=== PATIENT | female | born 1990 | race Caucasian/White ===

== ENCOUNTER 2022-06-14 06:10 | Inpatient (IN) | payer OTHER ==
[2022-06-14] MEDS ORDERED: ELECTROLYTE-148 SOLN 500 ML IV SCH (06:30)
[2022-06-14] MEDS ORDERED: CITRIC ACID/SODIUM CITRATE 30 ML UNIT-DOSE CUP PO ONE (07:30)
[2022-06-14] MEDS ORDERED: ELECTROLYTE-148 SOLN 1,000 ML IV SCH (07:30)
[2022-06-14 07:40] VITALS: BMI 31.5
[2022-06-14] MEDS ORDERED: ONDANSETRON 4 MG/2 ML VIAL IVPUSH PRN (07:55)
[2022-06-14] MEDS ORDERED: morphine SULFATE (PF) 1 MG/2 ML SYRINGE ONE (08:03)
[2022-06-14] MEDS ORDERED: PHENYLEPHRINE HCL 10 MG/1 ML SINGLE DOSE VIAL ONE (08:24)
[2022-06-14] MEDS ORDERED: ePHEDrine SULFATE 50 MG/1 ML AMPULE ONE (08:24)
[2022-06-14] MEDS ORDERED: SODIUM CHLORIDE 0.9% P/F 10 ML VIAL IJ ONE (08:25)
[2022-06-14] MEDS ORDERED: ceFAZolin SODIUM 1 GM VIAL ONE (08:29)
[2022-06-14] MEDS ORDERED: OXYTOCIN 10 UNITS/ML VIAL ONE ×2 (08:55→09:35)
[2022-06-14] MEDS ORDERED: BENZOCAINE 28 GM HEMORRHOIDAL OINTMENT TP PRN (10:15)
[2022-06-14] MEDS ORDERED: WITCH HAZEL 50% (TUCKS) 40 PAD/JAR PAD TP PRN (10:15)
[2022-06-14] MEDS ORDERED: IBUPROFEN 800 MG/8 ML IJ IVPB PRN (10:15)
[2022-06-14] MEDS ORDERED: BENZOCAINE 20% 57 GM BOTTLE TP PRN (10:15)
[2022-06-14] MEDS ORDERED: METHYLERGONOVINE MALEATE 0.2 MG/1 ML AMP IM PRN (10:15)
[2022-06-14 11:11] LABS: CORD BASE EXCESS -4.6 mmol/L (0-2); CORD HCO3 22.8 mmHg (20-29); CORD PCO2 50.2 mmHg (30-78); CORD pH 7.275 (7.14-7.44)
[2022-06-14 11:17] LABS: CORD BASE EXCESS -0.8 mmol/L (0-2); CORD HCO3 23.6 mmHg (20-29); CORD PCO2 38.4 mmHg (30-78); CORD pH 7.406 (7.14-7.44)
[2022-06-14 11:27] LABS: CORD BASE EXCESS -3.3 mmol/L (0-2); CORD PCO2 51.2 mmHg (30-78); CORD pH 7.288 (7.14-7.44)
[2022-06-14 11:30] LABS: CORD HCO3 23.1 mmHg (20-29); CORD PCO2 58.4 mmHg (30-78); CORD pH 7.215 (7.14-7.44)
[2022-06-14] MEDS: OXYTOCIN 20 UNITS in 0.9% NS 20 UNIT/1,000 ML INFUS.BAG IV SCH (16:01)
[2022-06-14] MEDS: SIMETHICONE 80 MG TAB.CHEW (FP) PO PRN (22:01)
[2022-06-14] MEDS ORDERED: oxyCODONE HCL 5 MG TABLET PO PRN ×2 (22:16)
[2022-06-15] MEDS: OXYTOCIN 20 UNITS in 0.9% NS 20 UNIT/1,000 ML INFUS.BAG IV SCH (00:16)
[2022-06-15] MEDS: SIMETHICONE 80 MG TAB.CHEW (FP) PO PRN ×2 (04:41→20:45)
[2022-06-15] MEDS: ACETAMINOPHEN 325 MG TABLET (FP) PO PRN (04:41)
[2022-06-15] MEDS: IBUPROFEN 600 MG TABLET (FP) PO PRN ×3 (08:30→21:52)
[2022-06-15 08:49] LABS: BASO % 0.3 % (0-2.0); HEMATOCRIT 35.6 % (32.4-45.2); HEMOGLOBIN 11.8 GM/dL (10.7-15.3); LYMPH % 10.8 % (8-40); MCH 29.9 pg (25.7-33.7); MEAN CELL VOLUME 90.6 fl (80-96); MONO % 4.3 % (3.8-10.2); NEUT % 83.6 % (42.8-82.8); PLATELET COUNT 149 10^3/uL (134-434); RBC 3.93 M/mm3 (3.60-5.2); RDW 15.7 % (11.6-15.6); WHITE BLOOD COUNT 11.5 K/mm3 (4.0-10.0)
[2022-06-15] MEDS ORDERED: BISACODYL 10 MG SUPP.RECT RC PRN (10:16)
[2022-06-15] MEDS: PRENATAL VITAMINS W/ FOLIC ACID TABLET (FP) PO SCH (10:45)
[2022-06-15] MEDS: SENNOSIDES/DOCUSATE COMBO (SENNA PLUS) TABLET (UD) PO PRN (20:45)
[2022-06-16] MEDS: SIMETHICONE 80 MG TAB.CHEW (FP) PO PRN ×4 (01:06→20:08)
[2022-06-16] MEDS: ACETAMINOPHEN 325 MG TABLET (FP) PO PRN ×2 (01:07→08:03)
[2022-06-16] MEDS: OXYTOCIN 20 UNITS in 0.9% NS 20 UNIT/1,000 ML INFUS.BAG IV SCH (02:49)
[2022-06-16] MEDS: IBUPROFEN 600 MG TABLET (FP) PO PRN ×4 (05:44→20:08)
[2022-06-16] MEDS: PRENATAL VITAMINS W/ FOLIC ACID TABLET (FP) PO SCH (10:08)
[2022-06-16] MEDS: SENNOSIDES/DOCUSATE COMBO (SENNA PLUS) TABLET (UD) PO PRN (20:08)
[2022-06-17] MEDS: SIMETHICONE 80 MG TAB.CHEW (FP) PO PRN ×3 (04:21→22:11)
[2022-06-17] MEDS: IBUPROFEN 600 MG TABLET (FP) PO PRN ×4 (04:21→22:12)
[2022-06-17 09:29] LABS: BASO % 0.3 % (0-2.0); EOS % 2.4 % (0-4.5); HEMATOCRIT 34.2 % (32.4-45.2); HEMOGLOBIN 11.7 GM/dL (10.7-15.3); LYMPH % 16.9 % (8-40); MCH 31.4 pg (25.7-33.7); MCHC 34.4 g/dl (32.0-36.0); MEAN CELL VOLUME 91.3 fl (80-96); MONO % 2.4 % (3.8-10.2); PLATELET COUNT 217 10^3/uL (134-434); RBC 3.74 M/mm3 (3.60-5.2); RDW 15.6 % (11.6-15.6); WHITE BLOOD COUNT 9.3 K/mm3 (4.0-10.0)
[2022-06-17] MEDS: PRENATAL VITAMINS W/ FOLIC ACID TABLET (FP) PO SCH (10:38)
[2022-06-17] MEDS ORDERED: valACYclovir HCL 500 MG TABLET (FP) PO ONE (11:00)
[2022-06-17] MEDS: ACETAMINOPHEN 325 MG TABLET (FP) PO PRN (18:20)
[2022-06-17] MEDS: valACYclovir HCL 500 MG TABLET (FP) PO SCH (22:09)
[2022-06-17 22:10] VITALS: PULSE 69; RESP 18; TEMP 98.1
[2022-06-17] MEDS: SENNOSIDES/DOCUSATE COMBO (SENNA PLUS) TABLET (UD) PO PRN (22:11)
[2022-06-18] MEDS: IBUPROFEN 600 MG TABLET (FP) PO PRN ×2 (04:38→08:15)
[2022-06-18] MEDS: SIMETHICONE 80 MG TAB.CHEW (FP) PO PRN (04:38)
[2022-06-18] MEDS: PRENATAL VITAMINS W/ FOLIC ACID TABLET (FP) PO SCH (09:56)
[2022-06-18] MEDS: valACYclovir HCL 500 MG TABLET (FP) PO SCH (09:56)
[2022-06-18 11:12] VITALS: BP 125/85
== END 2022-06-18 15:55 | disposition home or self-care (01) | DRG 788 ==
LOC: JLDR 06:10 → J3W 12:11
PROVIDERS: ADMIT Obstetrics & Gynecology; ATTEND Obstetrics & Gynecology
PROC: 10D00Z1 Extraction of Products of Conception, Low, Open Approach (ICD-10-PCS; principal; 2022-06-14)
DX: O30.043 Twin pregnancy, dichorionic/diamniotic, third trimester (principal); O36.5930 Maternal care for other known or suspected poor fetal growth, third trimester, not applicable or unspecified; Z3A.36 36 weeks gestation of pregnancy; Z37.2 Twins, both liveborn
CPT/HCPCS: 36415; 36600; 82803; 85025; 88307-TC